=== PATIENT | female | born 1960 | race African-American/Black ===

== ENCOUNTER 2017-08-04 11:21 | Emergency (ER) | payer SELFPAY ==
[~2017-08-04] VITALS: Ht 165.1 cm; Wt 77.0 kg
[2017-08-04] MEDS ORDERED: KETOROLAC 60MG/2ML VIAL IM ONE (14:45)
[2017-08-04 15:01] VITALS: BP 134/71
== END 2017-08-04 15:07 | disposition home or self-care (01) ==
LOC: ER 11:34
DX: M25.579 Pain in unspecified ankle and joints of unspecified foot (principal); M54.9 Dorsalgia, unspecified; S30.0XXA Contusion of lower back and pelvis, initial encounter; F12.10 Cannabis abuse, uncomplicated; V49.9XXA Car occupant (driver) (passenger) injured in unspecified traffic accident, initial encounter; Y93.9 Activity, unspecified; Y92.410 Unspecified street and highway as the place of occurrence of the external cause
CPT/HCPCS: 96372; 99283; J1885; Z7610